=== PATIENT | male | born 1950 | race Caucasian/White ===

== ENCOUNTER 2023-08-26 13:27 | Outpatient (CLI) | payer MEDICARE | END 2023-08-26 13:28 | disposition home or self-care (01) | LOC: CSHULT 13:27 | PROVIDERS: ATTEND Family Medicine | DX: E78.2 Mixed hyperlipidemia (principal); I10 Essential (primary) hypertension; I08.0 Rheumatic disorders of both mitral and aortic valves; I77.810 Thoracic aortic ectasia | CPT/HCPCS: 93306 ==

== ENCOUNTER 2024-05-10 08:41 | Day surgery (SDC) | payer MEDICARE ==
[2024-05-07 10:07] VITALS: BMI 27.2
[2024-05-10] MEDS ORDERED: PROPOFOL 40 ML ONE (10:13)
== END 2024-05-10 11:48 | disposition home or self-care (01) ==
LOC: CSHSDC 08:41
PROVIDERS: ATTEND Internal Medicine Gastroenterology
PROC: 0DBM8ZZ Excision of Descending Colon, Via Natural or Artificial Opening Endoscopic (ICD-10-PCS; principal; 2024-05-10)
PROC: 0DBN8ZZ Excision of Sigmoid Colon, Via Natural or Artificial Opening Endoscopic (ICD-10-PCS; 2024-05-10)
DX: Z12.11 Encounter for screening for malignant neoplasm of colon (principal); D12.5 Benign neoplasm of sigmoid colon; D12.4 Benign neoplasm of descending colon; K57.30 Diverticulosis of large intestine without perforation or abscess without bleeding; K64.9 Unspecified hemorrhoids; I10 Essential (primary) hypertension; E78.5 Hyperlipidemia, unspecified; Z86.010 Personal history of colon polyps; Z98.890 Other specified postprocedural states; Z79.899 Other long term (current) drug therapy
CPT/HCPCS: 45385; J2704; 88305